=== PATIENT | female | born 1935 | race African-American/Black ===

== ENCOUNTER 2024-09-20 11:27 | Inpatient (IN) | payer OTHER ==
[2024-09-20] MEDS ORDERED: ONDANSETRON 4 MG/2 ML VIAL ONE (12:13)
[2024-09-20] MEDS ORDERED: FAMOTIDINE 20 MG/2 ML VIAL IV ONE (12:14)
[2024-09-20 12:42] LABS: Absolute Basophils 0.1 K/uL (0-0.5); Absolute Eosinophils 0.1 K/uL (0-0.5); Absolute Lymphocytes (CBC) 0.8 K/uL (0.7-4.9); Absolute Monocytes 0.5 K/uL (0.1-1.3); Absolute Neutrophil 6.2 K/uL (1.8-8.0); Basophils % 0.9 % (0-1.3); Eosinophils % 0.9 % (0-4.4); Hemoglobin 12.2 g/dL (12.0-15.0); Lymphocytes % 10.1 % (15.3-44.8); MCH 26.7 pg (27.0-35.0); MCHC 33.1 g/dL (32.0-36.0); MCV 80.7 fL (80-100); MPV 9.4 fL (7.6-11.3); Monocytes % 7.1 % (3.3-12.3); Platelets 186 thou/uL (152-406); RBC Red Blood Cell Count 4.58 M/uL (3.86-4.86); Red Cell Distribution Width 15.8 % (12.1-15.2)
[2024-09-20] MEDS ORDERED: NA CHLORIDE 0.9% 500 ML ONE (13:16)
[2024-09-20] MEDS ORDERED: MORPHINE 4 MG/ML SYR ONE (13:16)
--- NOTE | 2024-09-20 13:37 | RAD REPORT ---
Procedure: Chest Single View HISTORY: Chest pain COMPARISON: none FINDINGS: Mild right upper lobe opacities. The left lung appears clear of acute infiltrate. No significant pleural effusion noted. The heart is normal size. IMPRESSION: Mild right upper lobe opacities could indicate a mild pneumonia
[2024-09-20 13:42] LABS: ALT/SGPT 17 U/L (13-56); AST/SGOT 16 U/L (15-37); Albumin/Globulin Ratio 0.6 (1.1-1.8); Alkaline Phosphatase 53 U/L (45-117); Anion Gap 9.8 mEq/L (5.0-15.0); BUN Blood Urea Nitrogen 17 mg/dL (7-18); Bicarbonate 26 mEq/L (21-32); Bilirubin Total 0.4 mg/dL (0.2-1.0); Glomerular Filtration Rate 28 ml/min (=/>90); Glucose Level 92 mg/dL (74-106); Lipase 25 U/L (13-75); Potassium 3.8 mEq/L (3.5-5.1); Sodium Level 138 mEq/L (136-145); Troponin High Sensitivity 33.8 pg/mL (<58.9)
[2024-09-20 13:43] LABS: Bilirubin Direct < 0.2 mg/dL (0-0.2); Bilirubin Indirect, Calculated 0.2 mg/dL (0.2-0.8)
--- NOTE | 2024-09-20 13:50 | ER ---
Nurse's Notes [facility] Name: Berkley Weber Age: 89 yrs Sex: Female : 1935 Arrival Date: 09/20/2024 Time: 11:27 Bed 14 Private MD: Diagnosis: Unspecified bacterial pneumonia Presentation: 09/20 12:00 Chief complaint: Patient states: c/o abdominal pain and chest pain that radiates to her hb right upper back started a couple of days ago. Denies n/v. Coronavirus screen: Vaccine status: Patient reports receiving the 2nd dose of the covid vaccine. Ebola Screen: No symptoms or risks identified at this time. Initial Sepsis Screen: Does the patient meet any 2 criteria? No. Patient's initial sepsis screen is negative. Does the patient have a suspected source of infection? No. Patient's initial sepsis screen is negative. Risk Assessment: Do you want to hurt yourself or someone else? Patient reports no desire to harm self or others. Onset of symptoms was September 18, 2024. 12:00 Method Of Arrival: Ambulatory hb 12:00 Acuity: JEFFREY 3 hb Triage Assessment: 12:00 General: Appears in no apparent distress. well groomed, well developed, well nourished, hb Behavior is calm, cooperative, appropriate for age. Pain: Complains of pain in chest and abdomen Pain radiates to right scapular area Pain currently is 6 out of 10 on a pain scale. Quality of pain is described as sharp, Pain began 2-3 days ago. Is continuous. EENT: No signs and/or symptoms were reported regarding the EENT system. Neuro: Level of Consciousness is awake, alert, obeys commands, Oriented to person, place, situation, Appropriate for age. Cardiovascular: Reports chest pain, Patient's skin is warm and dry. Respiratory: Airway is patent Respiratory effort is even, unlabored, Respiratory pattern is regular, symmetrical. GI: Reports upper abdominal pain, Patient currently denies diarrhea, nausea, vomiting. Derm: Skin is intact, is healthy with good turgor, Skin is pink, warm \T\ dry. Musculoskeletal: No signs and/or symptoms reported regarding the musculoskeletal system. Historical: - Allergies: 12:04 No Known Allergies; hb - Immunization history:: Adult Immunizations up to date. - Infectious Disease History:: Denies. - Social history:: Smoking status: Patient denies any tobacco usage or history of. Screenin:32 [facility] ED Fall Risk Assessment (Adult) History of falling in the last 3 months, ko1 including since admission No falls in past 3 months (0 pts) Confusion or Disorientation No (0 pts) Intoxicated or Sedated No (0 pts) Impaired Gait No (0 pts) Mobility Assist Device Used No (0 pt) Altered Elimination No (0 pt) Score/Fall Risk Level 0 - 2 = Low Risk Oriented to surroundings, Maintained a safe environment, Educated pt \T\ family on fall prevention, incl call for assistance when getting out of bed, Assessed \T\ reinforced patient's understanding of fall precautions, Hourly rounding (assess needs \T\ fall precautionary measures) done. Abuse screen: Denies threats or abuse. Denies injuries from another. Nutritional screening: No deficits noted. Tuberculosis screening: No symptoms or risk factors identified. Assessment: 12:30 General: Appears in no apparent distress. Behavior is calm, cooperative, appropriate ko1 for age. Pain: Complains of pain in back and chest. Neuro: Oriented to person. Cardiovascular: Reports chest pain. Respiratory: No deficits noted. GI: No deficits noted. : No deficits noted. EENT: No deficits noted. Derm: No deficits noted. Musculoskeletal: No deficits noted. 16:30 Reassessment: Patient became very combative in the restroom, after getting her back to ko1 bed x 3 assist, patient continued issue verbal threats and try to hit staff, obtained order for Valium. 16:45 Reassessment: CT called stating patient becoming combative, obtained order for ko1 additional valium. Patient became calm for scan. Vital Signs: 12:00 BP 179 / 68; Pulse 82; Resp 17; Pulse Ox 100% ; Weight 58.51 kg; Height 5 ft. 5 in. ; hb Pain 6/10; 12:38 BP 176 / 59; Pulse 66; Resp 16; Pulse Ox 98% ; ko1 13:00 BP 197 / 67; Pulse 56; Resp 15; Pulse Ox 100% ; ko1 13:30 BP 182 / 53; Pulse 56; Resp 14; Pulse Ox 100% ; ko1 14:15 BP 171 / 59; Pulse 76; Resp 15; Pulse Ox 99% ; ko1 16:54 BP 160 / 73; Pulse 92; Resp 16; Pulse Ox 100% ; ko1 12:00 Body Mass Index 21.47 (58.51 kg, 165.1 cm) hb 12:00 Pain Scale: Adult hb ED Course: 11:29 Patient arrived in ED. ra3 11:31 Scottie Nicole MD is Attending Physician. ec2 12:04 Triage completed. hb 12:04 Arm band placed on Patient placed in an exam room. hb 12:11 Tiff Hyde, RN is Primary Nurse. ko1 12:32 Patient has correct armband on for positive identification. Bed in low position. Call ko1 light in reach. Side rails up X2. Provided Education on: labs, meds. Client placed on continuous cardiac and pulse oximetry monitoring. NIBP monitoring applied. stock saw operator on. Door closed. Noise minimized. Lights dimmed. Warm blanket given. Pillow given. 12:32 Basic Metabolic Panel Sent. ko1 12:32 Lipase Sent. ko1 12:32 LFT's Sent. ko1 12:32 CBC with Diff Sent. ko1 12:32 Troponin HS Sent. ko1 12:32 Initial lab(s) drawn, by me, sent to lab. EKG done, by ED staff, reviewed by Scottie Nicole MD. Inserted saline lock: 22 gauge in right antecubital area, using aseptic technique. Blood collected. Flushed with 10 mL NS. Patient maintains SpO2 saturation greater than 95% on room air. 13:00 Lab(s) recollected, by ED staff, sent to lab. ko1 13:27 XRAY Chest (1 view) In Process Unspecified. EDMS 13:30 No provider procedures requiring assistance completed. ko1 13:49 Gil Hernandez MD is Hospitalizing Provider. ec2 16:30 Patient admitted, IV remains in place. ko1 16:55 Diet: gave pt dinner tray. sp 09/21 04:13 Magnesium Sent. rk3 04:13 Magnesium Sent. rk3 04:13 Comprehensive Metabolic Panel Sent. rk3 04:13 T4 Free Sent. rk3 04:13 Thyroid Stimulating Hormone Sent. rk3 04:13 Comprehensive Metabolic Panel Sent. rk3 Administered Medications: 09/20 12:31 Drug: Ondansetron IVP 4 mg IVP once; over 2 minutes Route: IVP; Site: right antecubital;ko1 12:46 Follow up: Response: No adverse reaction ko1 12:31 Drug: Famotidine IVP 20 mg IVP once; dilute with 10 mL 0.9% NaCl; give over 2 minutes ko1 Route: IVP; Site: right antecubital; 12:46 Follow up: Response: No adverse reaction ko1 13:26 Drug: NS 0.9% IV 500 ml 500 ml IV at 1 bolus once; to be given as a bolus over 30 ko1 minutes Volume: 500 ml; Route: IV; Rate: 1 bolus; Site: right antecubital; 14:03 Follow up: Response: No adverse reaction; IV Status: Completed infusion; IV Intake: ko1 500ml 13:26 Drug: morphine IVP or IV 4 mg IVP once over 4 mins Route: IVP; Infused Over: 4 mins; ko1 Site: right antecubital; 13:41 Follow up: Response: No adverse reaction; Pain is decreased ko1 13:58 Drug: Rocephin IV 1 grams IV at calculated rate once; Given slow IV push per pharmacy ko1 instructions Route: IV; Rate: calculated rate; Site: right antecubital; 14:03 Follow up: Response: No adverse reaction; IV Status: Completed infusion; IV Intake: [id number] 14:03 Drug: AZITHromycin IVPB 500 mg IVPB once over 1 hrs; (mix in 250 mL NS) Route: IVPB; ko1 Infused Over: 1 hrs; Site: right antecubital; 15:05 Follow up: Response: No adverse reaction; IV Status: Completed infusion; IV Intake: ko1 250ml 16:28 Drug: Diazepam IVP 5 mg IVP once Route: IVP; Site: right antecubital; ko1 16:45 Follow up: Response: No adverse reaction ko1 16:44 Drug: Diazepam IVP 5 mg IVP once Route: IVP; Site: right antecubital; ko1 16:59 Follow up: Response: No adverse reaction; Anxiety decreased ko1 Medication: 12:38 VIS not applicable for this client. ko1 Intake: 14:03 IV: 500ml; Total: 500ml. ko1 14:03 IV: 10ml; Total: 510ml. ko1 15:05 IV: 250ml; Total: 760ml. ko1 Outcome: 13:49 Decision to Hospitalize by Provider. ec2 17:32 Admitted to ER Hold. Please see [facility] for further documentation. ko1 17:32 Condition: stable 17:32 Instructed on the need for admit, 09/21 14:14 Patient left the ED. ll1 Signatures: Dispatcher [employer] EDChelsy Herr Heather, RN RN Kristie Khoury RN RN ll1 Tiff Hyde RN RN ko1 Scottie Nicole MD MD ec2 Nola Olvera ra3 Mulugeta Springer3 Corrections: (The following items were deleted from the chart) 09/20 12:08 12:00 BP 179 / 68; Pulse 82bpm; Resp 17bpm; Pulse Ox 100%; Height 5 ft. 5 in.; Pain hb 6/10, Adult; hb 16:47 12:30 Neuro: No deficits noted. ko1 ko1
--- NOTE | 2024-09-20 13:50 | EDPHYS ---
Physician Documentation [facility] Name: Berkley Weber Age: 89 yrs Sex: Female : 1935 Arrival Date: 09/20/2024 Time: 11:27 Bed 14 Private MD: ED Physician Scottie Nicole HPI: 09/20 12:02 This 89 yrs old Black Female presents to ER via Unassigned with complaints of Chest ec2 Pain, Shoulder Pain. 12:02 Patient arrives today for evaluation of chest pain and back pain. Patient reports that ec2 she is been feeling some epigastric abdominal pain along with some chest pain and some back pain. No falls injuries or trauma. Denies any issues with nausea, vomiting, diarrhea. No urinary complaints. No cough or cold symptoms.. Historical: - Allergies: 12:04 No Known Allergies; hb - Immunization history:: Adult Immunizations up to date. - Infectious Disease History:: Denies. - Social history:: Smoking status: Patient denies any tobacco usage or history of. ROS: 12:02 Constitutional: as per hpi ec2 Exam: 12:02 Constitutional: GEN: NAD Head: atraumatic Eyes: EOMI Ears: External ears are ec2 normal. CV: regular rate LUNGS: no respiratory distress, no wheezes or rales or rhonchi ABD: non-distended, soft, nontender, no guarding, not rigid SKIN: no evidence of rashes MSK: no evidence of trauma Vital Signs: 12:00 BP 179 / 68; Pulse 82; Resp 17; Pulse Ox 100% ; Weight 58.51 kg; Height 5 ft. 5 in. ; hb Pain 6/10; 12:38 BP 176 / 59; Pulse 66; Resp 16; Pulse Ox 98% ; ko1 13:00 BP 197 / 67; Pulse 56; Resp 15; Pulse Ox 100% ; ko1 13:30 BP 182 / 53; Pulse 56; Resp 14; Pulse Ox 100% ; ko1 14:15 BP 171 / 59; Pulse 76; Resp 15; Pulse Ox 99% ; ko1 16:54 BP 160 / 73; Pulse 92; Resp 16; Pulse Ox 100% ; ko1 12:00 Body Mass Index 21.47 (58.51 kg, 165.1 cm) hb 12:00 Pain Scale: Adult hb MDM: 11:48 Medical Screening Exam initiated ec2 12:03 Data reviewed: vital signs, nurses notes. ED course: Patient arrives today for ec2 evaluation of abdominal and chest pain along with back pain. Examination is revealing for nontoxic individual who has a reassuring cardiopulmonary and abdominal examination. Will obtain cardiac workup as well as blood work. Differential clues processes such as gastritis, ACS, pancreatitis.. 12:19 ED course: EKG independently reviewed and interpreted by me, shows atrial fibrillation, ec2 rate of 74, no acute ST segment elevations, PVCs noted, intervals are nonactionable.. 13:47 ED course: Metabolic profile shows renal dysfunction with a creatinine of 1.73. LFTs ec2 are nonactionable, troponin within normal ranges. Chest x-ray shows right upper lobe infiltrate, consistent with pneumonia. Further discussion has been having some URI symptoms as well. Will give the patient antibiotics, admit for pneumonia, renal dysfunction. Discussed with hospitalist, pending admission.. 09/20 12:02 Order name: Basic Metabolic Panel ec2 09/20 12:02 Order name: CBC with Diff; Complete Time: 13:29 ec2 09/20 12:02 Order name: Troponin HS ec2 09/20 12:02 Order name: Lipase ec2 09/20 12:02 Order name: LFT's ec2 09/20 15:42 Order name: CBC with Automated Diff EDMS 09/20 15:42 Order name: CBC with Automated Diff EDMS 09/20 15:42 Order name: Comprehensive Metabolic Panel EDMS 09/20 15:42 Order name: Comprehensive Metabolic Panel EDMS 09/20 15:42 Order name: Magnesium EDMS 09/20 15:42 Order name: Magnesium EDMS 09/20 15:44 Order name: T4 Free EDMS 09/20 15:44 Order name: Thyroid Stimulating Hormone EDMS 09/20 23:20 Order name: T4 Free EDMS 09/20 23:20 Order name: Thyroid Stimulating Hormone EDMS 09/20 12:02 Order name: XRAY Chest (1 view); Complete Time: 13:46 ec2 09/20 15:42 Order name: Chest Abd Pelvis Wo Con EDMS 09/20 12:02 Order name: Cardiac monitoring; Complete Time: 12:11 ec2 09/20 12:02 Order name: EKG - Nurse/Tech; Complete Time: 12:15 ec2 09/20 12:02 Order name: IV Saline Lock; Complete Time: 12:32 ec09/20 12:02 Order name: Labs collected and sent; Complete Time: 12:32 09/20 12:02 Order name: O2 Per Protocol; Complete Time: 12:11 09/20 12:02 Order name: O2 Sat Monitoring; Complete Time: 12:11 09/20 12:42 Order name: Misc. Order: recollect of lab; Complete Time: 13:19 sp Administered Medications: 12:31 Drug: Ondansetron IVP 4 mg IVP once; over 2 minutes Route: IVP; Site: right antecubital;ko1 12:46 Follow up: Response: No adverse reaction ko1 12:31 Drug: Famotidine IVP 20 mg IVP once; dilute with 10 mL 0.9% NaCl; give over 2 minutes ko1 Route: IVP; Site: right antecubital; 12:46 Follow up: Response: No adverse reaction ko1 13:26 Drug: NS 0.9% IV 500 ml 500 ml IV at 1 bolus once; to be given as a bolus over 30 ko1 minutes Volume: 500 ml; Route: IV; Rate: 1 bolus; Site: right antecubital; 14:03 Follow up: Response: No adverse reaction; IV Status: Completed infusion; IV Intake: ko1 500ml 13:26 Drug: morphine IVP or IV 4 mg IVP once over 4 mins Route: IVP; Infused Over: 4 mins; ko1 Site: right antecubital; 13:41 Follow up: Response: No adverse reaction; Pain is decreased ko1 13:58 Drug: Rocephin IV 1 grams IV at calculated rate once; Given slow IV push per pharmacy ko1 instructions Route: IV; Rate: calculated rate; Site: right antecubital; 14:03 Follow up: Response: No adverse reaction; IV Status: Completed infusion; IV Intake: 00ride7 14:03 Drug: AZITHromycin IVPB 500 mg IVPB once over 1 hrs; (mix in 250 mL NS) Route: IVPB; ko1 Infused Over: 1 hrs; Site: right antecubital; 15:05 Follow up: Response: No adverse reaction; IV Status: Completed infusion; IV Intake: ko1 250ml 16:28 Drug: Diazepam IVP 5 mg IVP once Route: IVP; Site: right antecubital; ko1 16:45 Follow up: Response: No adverse reaction ko1 16:44 Drug: Diazepam IVP 5 mg IVP once Route: IVP; Site: right antecubital; ko1 16:59 Follow up: Response: No adverse reaction; Anxiety decreased ko1 Disposition Summary: 09/20/24 13:49 Hospitalization Ordered Notes: Hospitalization Status: Inpatient Admission ec2 Provider: Gil Hernandez ec2 Condition: Stable ec2 Problem: new ec2 Symptoms: are unchanged ec2 Bed/Room Type: Standard ec2 Location: Telemetry/MedSurg (Inpatient)(09/21/24 12:42) gb1 Room Assignment: 229(09/21/24 12:42) gb1 Diagnosis - Unspecified bacterial pneumonia ec2 Forms: - Medication Reconciliation Form ec2 - SBAR form ec2 - Leadership Thank You Letter ec2 Signatures: Dispatcher [employer] EDMS Irma Sue Shawna sp Baxter, Heather, RN RN Tiff yHde RN RN ko1 Scottie Nicole MD MD ec2 Roxane Garrett MD MD gb1 Corrections: (The following items were deleted from the chart) 12:03 12:03 BASIC METABOLIC PANEL+C.LAB.BRZ ordered. EDMS EDMS 12:03 12:03 CBC+H.LAB.BRZ ordered. EDMS EDMS 12:03 12:03 Troponin High Sensitivity+C.LAB.BRZ ordered. EDMS EDMS 12:03 12:03 Chest Single View+RAD.RAD.BRZ ordered. EDMS EDMS 12:03 12:03 LIPASE+C.LAB.BRZ ordered. EDMS EDMS 12:03 12:03 HEPATIC FUNCTION+C.LAB.BRZ ordered. EDMS EDMS 15:42 15:42 Lipase ordered. EDMS EDMS 15:42 15:42 T4 Free ordered. EDMS EDMS 15:42 15:42 Thyroid Stimulating Hormone ordered. EDMS EDMS 16:14 13:49 Telemetry/MedSurg (Inpatient) ec2 sp 16:14 13:49 ec2 sp 09/21 12:42 09/20 16:14 [facility] ER HOLD sp bd 09/21 12:42 09/20 16:14 ERHOLD- sp bd 09/21 12:42 12:42 Telemetry/MedSurg (Inpatient) bd gb1 12:42 12:42 229 bd gb1
[2024-09-20] MEDS ORDERED: CEFTRIAXONE 1000 MG/VIAL ONE (13:53)
[2024-09-20] MEDS ORDERED: AZITHROMYCIN 500 MG INJ IVPB ONE (13:53)
[2024-09-20] MEDS ORDERED: ONDANSETRON 4 MG/2 ML VIAL IV PRN (15:32)
[2024-09-20] MEDS ORDERED: ACETAMINOPHEN 500 MG TAB PO PRN (15:32)
--- NOTE | 2024-09-20 15:56 | P.HP ---
Certification for Inpatient Patient admitted to: Observation With expected LOS: <2 Midnights Practitioner: I am a practitioner with admitting privileges, knowledge of patient current condition, hospital course, and medical plan of care. Services: Services provided to patient in accordance with Admission requirements found in Title 42 Section 412.3 of the Code of Federal Regulations Patient History Date of Service: 09/20/24 Reason for admission: epigastric/chest pain History of Present Illness: 89yo F, with no significant past medical history, presents to ED today due to 2-3 day of ongoing epigastric abdominal pain, substernal chest pain that radiates towards R shoulder blade. No particular worsening/alleviating factors. Workup in ED noted elevated creatinine (unknown baseline) and chest x-ray noting RUL opacities - possibly pneumonia. Family at bedside report thinking patient was dealing with indigestion. This started after eating chik robina a; and patient tried mineral water that didn't help, so they felt this was unlikely indigestion. Patient denies any change in urinary/bowel habits. She denies any cough, no fever, no congestion, no sick contacts. Currently pain is resolved after morphine given earlier. No evidence of SIRS / sepsis. ED provider requested admission for pneumonia. Allergies No Known Allergies Allergy (Unverified 09/20/24 18:34) - Past Medical/Surgical History Past Medical History: Patient denies medical history -: hysterectomy - Family History Family History: Reviewed- Non-Contributory - Social History Smoking Status: Never smoker Alcohol use: No Place of Residence: Home Review of Systems 10-point ROS is otherwise unremarkable Physical Examination - Physical Exam General: Alert, In no apparent distress, Oriented x2, Demented (mild) HEENT: EOMI, Sclerae nonicteric Neck: Supple, No LAD Respiratory: Clear to auscultation bilaterally, Normal air movement Cardiovascular: Normal pulses, Irregular heart rate/rhythm Gastrointestinal: Soft and benign, Non-distended, Tenderness Musculoskeletal: No contractures, No tenderness Integumentary: No rashes, No significant lesion Neurological: Normal speech, Normal strength at 5/5 x4 extr, Normal affect - Studies Laboratory Data (last 24 hrs) 09/20/24 09/20/24 09/20/24 15:39 13:09 12:29 WBC 7.60 Hgb 12.2 Hct 37.0 Plt Count 186 Sodium 138 Potassium 3.8 BUN 17 Creatinine 1.73 H Glucose 92 Total Bilirubin 0.4 AST 16 ALT 17 Alkaline Phosphatase 53 Lipase Cancelled 25 Assessment and Plan - Advance Directives Does patient have a Living Will: No Does patient have a Durable POA for Healthcare: No Physician Review Additional Text: Problem List epigastric abdominal pain RUL opacity ANAY vs CKD Aflutter - new diagnosis; unknown duration unclear etiology of epigastric abdominal - also with R scapula pain nothing worsens or alleviates family at bedside - stated it started after chik robina a nuggets 2-3 days ago had some tenderness to deep palpation in epigastrium lipase normal possibly GERD / ulcer pepcid, carafate EKG with aflutter, no SOB, rate: 70-80s monitor on telemetry, denies palpitations or shortness of breath denies any prior diagnosis consult cardio RUL opacity - possible pneumonia no cough, no fever, no shortness of breath, no sick contacts check CT continue rocephin - abx started in ER no evidence of sepsis ANAY vs CKD unknown baseline will trend for now BP elevated, denies any significant drop in intake, no diarrhea not best historian VTE: lovenox code: full - confirmed with patient and family Dispo: home, ~24-48hrs Time Spent Managing Pts Care (In Minutes): 75
[2024-09-20] MEDS ORDERED: DIAZEPAM 10 MG/2 ML INJ SYRINGE ONE (16:25)
[2024-09-20] MEDS: SUCRALFATE 1GM/10ML UCUP FT SCH (16:30)
--- NOTE | 2024-09-20 17:12 | RAD REPORT ---
EXAM: CT CHEST, ABDOMEN AND PELVIS WITHOUT CONTRAST CLINICAL INDICATION: Chest and abdominal pain TECHNIQUE: CT chest, abdomen and pelvis was performed, without IV contrast, as per department protoco l. Axial, sagittal and coronal reconstructions were obtained. One or more of the following dose reduction techniques were used: Automated exposure control, adjustment of the mA and/or kV according to the patient size, and/or iterative reconstruction. Unless otherwise specified, incidental findings do not require dedicated imaging follow-up. The lack of IV and oral contrast limits evaluation of the mediastinum, kathrine, vessels, organs and deidre l. COMPARISON: None FINDINGS: Opacities right upper lobe with volume loss probably scarring. Additional mild tree-in-bud opacities within the lungs bilaterally. Calcified mediastinal lymph nodes. No hilar lymphadenopathy seen. Small right pleural effusion. No pericardial effusion. Liver, spleen, pancreas, adrenals kidneys and bladder appear grossly normal There is no evidence of diverticulitis Moderate gastric distention Spondylosis lumbar spine results in spinal stenosis IMPRESSION: Mild tree-in-bud opacities within the lungs may indicate an atypical pneumonia Moderate gastric distention
[2024-09-20 18:32] VITALS: BMI 22.3
[2024-09-20] MEDS: FAMOTIDINE 20 MG TAB PO SCH (21:00)
[2024-09-20] MEDS ORDERED: FAMOTIDINE 20 MG TAB ONE (22:31)
[2024-09-20] MEDS ORDERED: SUCRALFATE 1GM/10ML UCUP ONE (22:32)
[2024-09-21 04:31] LABS: Absolute Basophils 0.1 K/uL (0-0.5); Absolute Eosinophils 0.1 K/uL (0-0.5); Absolute Lymphocytes (CBC) 1.2 K/uL (0.7-4.9); Absolute Monocytes 0.9 K/uL (0.1-1.3); Absolute Neutrophil 6.2 K/uL (1.8-8.0); Eosinophils % 1.4 % (0-4.4); Hematocrit 35.9 % (36.0-45.0); Hemoglobin 11.6 g/dL (12.0-15.0); Lymphocytes % 13.6 % (15.3-44.8); MCH 26.3 pg (27.0-35.0); MCHC 32.3 g/dL (32.0-36.0); MCV 81.5 fL (80-100); MPV 9.5 fL (7.6-11.3); Monocytes % 10.5 % (3.3-12.3); Neutrophils % 73.5 % (41.7-73.7); Platelets 189 thou/uL (152-406); RBC Red Blood Cell Count 4.41 M/uL (3.86-4.86); Red Cell Distribution Width 16.1 % (12.1-15.2)
[2024-09-21 04:52] LABS: Albumin 3.2 g/dL (3.4-5.0); Albumin/Globulin Ratio 0.6 (1.1-1.8); Anion Gap 5.3 mEq/L (5.0-15.0); Bilirubin Total 0.2 mg/dL (0.2-1.0); Globulin 5.2 g/dL (2.3-3.5); Magnesium 2.1 mg/dL (1.6-2.4); Potassium 4.3 mEq/L (3.5-5.1); Protein, Total 8.4 g/dL (6.4-8.2)
[2024-09-21] MEDS ORDERED: CEFTRIAXONE 1000 MG/VIAL ONE (07:41)
[2024-09-21] MEDS ORDERED: SUCRALFATE 1 GM TABLET ONE (07:50)
[2024-09-21] MEDS ORDERED: ENOXAPARIN 30 MG/0.3 ML SQ ONE (07:50)
[2024-09-21] MEDS ORDERED: NA CHLORIDE 0.9% 50 ML ONE (07:51)
[2024-09-21] MEDS: ENOXAPARIN 30 MG/0.3 ML SQ SCH (09:00)
[2024-09-21] MEDS: CEFTRIAXONE 1,000 MG in NA CHLORIDE 0.9% 50 ML IVPB SCH (09:00)
--- NOTE | 2024-09-21 11:30 | P.PN ---
Date of Service: 09/21/24 Subjective: family report patient doing much better no further pain since admission eating ok no cough ROS: 10 point ROS as noted above, otherwise negative Physical Exam: GEN: Alert, orientedx2, demented (mild) CV: regular rate/rhythm, no edema Pulm: Nonlabored respirations on room air, clear bilaterally ABD: soft, mild epigastric tenderness, nondistended Neuro: Normal speech, normal affect Problem List: Epigastric abdominal pain, unclear etiology Aflutter - new diagnosis; unknown duration RUL opacity ANAY vs CKD Epigastric abdominal pain, unclear etiology unclear etiology of epigastric abdominal - also with R scapula pain nothing worsens or alleviates family at bedside - stated it started after chik robina a nuggets 2-3 days ago had some tenderness to deep palpation in epigastrium CT chest/abd/pelvis (09/20): moderate amount of gastric distention, mild tree-in-bud opacities within the lungs bilaterally, small right pleural effusion, spondylosis lumbar spine resulting in spinal stenosis. lipase normal, LFTs normal. possibly GERD / ulcer; continue pepcid, carafate Aflutter - new diagnosis; unknown duration EKG with aflutter, no SOB, rate: 70-80s monitor on telemetry, denies palpitations or shortness of breath denies any prior diagnosis briefly discussed with cardio, rate controlled, asymptomatic - anticoag and f/u in office briefly discussed with patient and family, undecided what they want to do - low dose eliquis vs aspirin; leaning towards eliquis 2.5mg bid RUL opacity no cough, no fever, no shortness of breath, no sick contacts CXR (09/20): mild right upper lobe opacities concerning for possible mild pneumonia. CT chest/abdomen/pelvis (09/20 ): mild tree-in-bud opacities within the lungs bilaterally may indicate atypical pneumonia. small right pleural effusion Started on rocephin in ED to cover possible bacterial infection; dc 09/21 No evidence of sepsis. No leukocytosis. No fever ANAY vs CKD spoke with PCP - last checked renal function 05/2023, Cr was 1.5 continue to monitor renal function BP elevated, denies any significant drop in intake, no diarrhea VTE: lovenox code: full - confirmed with patient and family Dispo: home, ~1 day repeat BMP in am, monitor aflutter Time Spent Managing Pts Care (In Minutes): 55
[2024-09-21] MEDS: NA CHLORIDE 0.9% 1,000 ML IV SCH (14:00)
[2024-09-21] MEDS: MORPHINE 2 MG/ML SYR IV PRN (15:21)
[2024-09-22 08:55] VITALS: BP 178/78; TEMP 97.9
[2024-09-22 09:07] LABS: Anion Gap 5.8 mEq/L (5.0-15.0); Magnesium 1.9 mg/dL (1.6-2.4); Potassium 3.8 mEq/L (3.5-5.1)
[2024-09-22 09:21] VITALS: O2SAT 99
--- NOTE | 2024-09-22 19:12 | P.DS ---
Admission Date: 09/21/24 Discharge Date: 09/22/24 Disposition: ROUTINE DISCHARGE Discharge Condition: FAIR Reason for Admission: epigastric/chest pain Brief History of Present Illness: 89yo F, with no significant past medical history, presented to ED due to 2-3 day of ongoing epigastric abdominal pain, substernal chest pain that radiates towards R shoulder blade. No particular worsening/alleviating factors. Workup in ED noted elevated creatinine (unknown baseline) and chest x-ray noting RUL opacities - possibly pneumonia. Symptoms occured after she ate chik robina a. ED provider requested admission for pneumonia. Hospital Course: Problem List: Epigastric abdominal pain, unclear etiology Aflutter - new diagnosis; unknown duration RUL opacity ANAY vs CKD Patient presented with epigastric abdominal pain in addition to R scapula pain. Unclear exact etiology. She reports her pain resolved after IV morphine. She denied any cough, fever, congestion. No change in recent bowel/urinary habits. Chest xray with mild right upper lobe opacities concerning for possible mild pneumonia. CT chest/abdomen/pelvis noted mild tree-in-bud opacities within the lungs bilaterally may indicate atypical pneumonia. CT also noted moderate amount of gastric distention, small right pleural effusion, spondylosis luumbar spine resulting in spinal stenosis. She was started on empiric IV rocephin to cover possible bacterial infection, in addition to pepcid/carafate and had some improvement of her symptoms. Vital Signs/Physical Exam: Temp Pulse Resp BP Pulse Ox 97.9 F 58 16 178/78 H 99 09/22/24 08:00 09/22/24 08:00 09/22/24 08:00 09/22/24 08:00 09/22/24 08:00 General: In no apparent distress, Other (Awake and interactive) Neck: Supple, JVD not distended Respiratory: Clear to auscultation bilaterally, Normal air movement Cardiovascular: No edema, Regular rate/rhythm, Normal S1 S2 Gastrointestinal: Normal bowel sounds, Soft and benign, Non-distended Musculoskeletal: No swelling Integumentary: No rashes, No cyanosis Neurological: Normal strength at 5/5 x4 extr Laboratory Data at Discharge: WBC 8.50 thou/uL (4.3-10.9) 09/21/24 03:47 Hgb 11.6 g/dL (12.0-15.0) L 09/21/24 03:47 Hct 35.9 % (36.0-45.0) L 09/21/24 03:47 Plt Count 189 thou/uL (152-406) 09/21/24 03:47 Sodium 142 mEq/L (136-145) 09/22/24 08:40 Potassium 3.8 mEq/L (3.5-5.1) 09/22/24 08:40 BUN 17 mg/dL (7-18) 09/22/24 08:40 Creatinine 1.53 mg/dL (0.55-1.02) H 09/22/24 08:40 Glucose 90 mg/dL (74-106) 09/22/24 08:40 Magnesium 1.9 mg/dL (1.6-2.4) 09/22/24 08:40 Total Bilirubin 0.2 mg/dL (0.2-1.0) 09/21/24 03:47 AST 59 U/L (15-37) H 09/21/24 03:47 ALT 20 U/L (13-56) 09/21/24 03:47 Alkaline Phosphatase 62 U/L (45-117) 09/21/24 03:47 Lipase Cancelled 09/20/24 15:39 Home Medications: Famotidine [Pepcid*] 20 mg PO BEDTIME #30 tab 09/22/24 levoFLOXacin [Levaquin] 750 mg PO DAILY #5 tab 09/22/24 New Medications: levoFLOXacin [Levaquin] 750 mg PO DAILY #5 tab Famotidine [Pepcid*] 20 mg PO BEDTIME #30 tab Physician Discharge Instructions: Physician discharge instructions: Patient presented with epigastric abdominal pain in addition to R scapula pain. Unclear exact etiology. She reports her pain resolved after IV morphine. She denied any cough, fever, congestion. No change in recent bowel/urinary habits. Chest xray with mild right upper lobe opacities concerning for possible mild pneumonia. CT chest/abdomen/pelvis noted mild tree-in-bud opacities within the lungs bilaterally may indicate atypical pneumonia. CT also noted moderate amount of gastric distention, small right pleural effusion, spondylosis luumbar spine resulting in spinal stenosis. She was started on empiric IV rocephin to cover possible bacterial infection, in addition to pepcid/carafate and had some improvement of her symptoms. Medications: follow up: PCP 3-5 days Diet: Regular Activity: Fall precautions Followup: Fran Avilez MD [Primary Care Provider] - 1 Week Time spent managing pt's care (in minutes): 28
--- NOTE | 2024-09-28 12:37 | EKG ---
Test Date: 2024-09-20 Test Time: 12:14:12 Cryptoanalysis Teacher: HB MEASUREMENT RESULTS: Intervals: Rate: 74 [place]: QRSD: 64 QT: 372 QTc: 412 [place]: P: MI: QRS: 52 T: 52 INTERPRETIVE STATEMENTS: Atrial fibrillation with premature ventricular or aberrantly conducted complexes Abnormal ECG Compared to ECG 11/28/2013 23:12:39 Ventricular premature complex(es) now present Sinus rhythm no longer present Electronically Signed On 09-28-24 12:20:46 ENGINEERING TECHNICAL ANALYST by Justino Correa
== END 2024-09-22 12:07 | disposition home or self-care (01) | DRG 194 ==
LOC: ER 11:27 → ERHOLD 15:31 → 2ND 09-21 13:13 → OBSVTOIN 09-21 15:50
PROVIDERS: ADMIT Hospitalist; ATTEND Internal Medicine
DX: J15.9 Unspecified bacterial pneumonia (principal); I48.92 Unspecified atrial flutter; N17.9 Acute kidney failure, unspecified; I48.91 Unspecified atrial fibrillation; I49.3 Ventricular premature depolarization; N18.9 Chronic kidney disease, unspecified; M48.00 Spinal stenosis, site unspecified; F03.90 Unspecified dementia, unspecified severity, without behavioral disturbance, psychotic disturbance, mood disturbance, and anxiety; R10.9 Unspecified abdominal pain; Z90.710 Acquired absence of both cervix and uterus
CPT/HCPCS: 36415; 71045; 71250; 74176; 80048; 80053; 80076; 83690; 83735; 84439; 84443; 84484; 85025; 93005; 94760; 96361; 96365; 96375; 99285; G0378; J0696; J1650; J2270; J2405; J3360; J7030; J7040